=== PATIENT | female | born 1970 | race Caucasian/White ===

== ENCOUNTER 2019-06-25 08:05 | Day surgery (SDC) | payer MEDICARE ==
[~2019-06-25] VITALS: Ht 165.1 cm; Wt 122.5 kg
[2019-06-25] MEDS ORDERED: GABA-531 PO (08:07)
[2019-06-25] MEDS ORDERED: BUPR100T13 PO (08:07)
[2019-06-25] MEDS ORDERED: LISI40TA4 PO (08:07)
[2019-06-25] MEDS ORDERED: TRAZ-252 PO (08:07)
[2019-06-25] MEDS ORDERED: QUET400T PO (08:07)
[2019-06-25] MEDS ORDERED: LACTATED RINGERS 1,000 ML IV SCH (08:45)
[2019-06-25 09:38] LABS: CHLORIDE 109 mEq/L (98-107)
[2019-06-25 09:40] LABS: PARTIAL THROMBOPLASTIN TIME 26.2 sec (23.4-31.0); PROTHROMBIN TIME 9.9 sec (9.6-11.0)
[2019-06-25 09:46] LABS: HCG SCREEN NEGATIVE
[2019-06-25] MEDS ORDERED: FLOV44 IH (10:37)
[2019-06-25] MEDS ORDERED: MIDAZOLAM HCL 2 MG/2 ML VIAL ONE (10:47)
[2019-06-25] MEDS ORDERED: FENTANYL CITRATE/PF 50MCG/ML 2ML VIAL ONE (10:47)
[2019-06-25] MEDS ORDERED: ONDANSETRON HCL 4MG/2ML INJ ONE (10:48)
[2019-06-25] MEDS ORDERED: TERBUTALINE SULFATE 1MG/ML VIAL ONE (10:48)
[2019-06-25] MEDS ORDERED: METOCLOPRAMIDE HCL 10MG/2ML VIAL ONE (10:48)
[2019-06-25] MEDS ORDERED: PROPOFOL 200MG/20ML VIAL IV ONE (10:48)
[2019-06-25] MEDS ORDERED: LIDOCAINE HCL/PF 1% 10 MG/ML 5ML VIAL ONE (10:48)
[2019-06-25 11:06] LABS: BASOPHILS % 1.3 % (0.0-2.0); EOSINOPHILS % 4.9 % (0.0-5.0); HEMOGLOBIN. 11.4 g/dL (12.0-16.0); LYMPHOCYTES % 28.3 % (20.0-50.0); MEAN CORPUSCULAR HEMOGLOBIN 29.1 pg (28.0-32.0); MEAN CORPUSCULAR VOLUME 86.9 fL (81.0-99.0); MEAN PLATELET VOLUME 8.3 fl (7.4-10.4); MONOCYTES % 7.6 % (2.0-8.0); NEUTROPHILS % 57.9 % (40.0-76.0); PLATELET 312 x1000/uL (130-400); RED BLOOD CELL COUNT 3.91 mill/uL (4.2-5.4); RED CELL DISTRIBUTION WIDTH 14.3 % (11.6-14.6)
[2019-06-25] MEDS ORDERED: DEXAMETHASONE 4MG/ML 1ML VIAL ONE (11:07)
[2019-06-25] MEDS ORDERED: EPHEDRINE SULFATE 50MG/ML VIAL ONE (11:07)
[2019-06-25] MEDS ORDERED: SODIUM CHLORIDE 0.9% 10ML VIAL ONE ×3 (11:07→11:50)
[2019-06-25] MEDS ORDERED: CEFAZOLIN SODIUM 1000MG/VIAL ONE (11:27)
[2019-06-25] MEDS ORDERED: PHENYLEPHRINE HCL 10 MG/ML 1ML (IV VIAL) IV ONE (11:49)
[2019-06-25] MEDS ORDERED: HYDRALAZINE 20MG/ML VIAL ONE (12:17)
== END 2019-06-25 14:30 | disposition home or self-care (01) ==
LOC: OR 08:05
PROVIDERS: ATTEND Obstetrics & Gynecology
DX: D25.9 Leiomyoma of uterus, unspecified (principal); N92.4 Excessive bleeding in the premenopausal period; I10 Essential (primary) hypertension; J45.909 Unspecified asthma, uncomplicated; F41.9 Anxiety disorder, unspecified; F32.9 Major depressive disorder, single episode, unspecified; Z90.49 Acquired absence of other specified parts of digestive tract; Z98.890 Other specified postprocedural states; Z98.51 Tubal ligation status; Z79.899 Other long term (current) drug therapy
CPT/HCPCS: 36415; 58558; 80053; 84703; 85025; 85610; 85730; 86850; 86900; 86901; 88305; 93005; J0690; J1100; J2250; J2370; J2405; J2704; J2765; J3010; J3105; J3490; J0360

== ENCOUNTER → 2020-02-26 | Outpatient (CLI) | payer MEDICARE, MEDICAID ==
[~2020-02-26] MED LIST: AMLO10TA80 PO; BUPR100T13 PO; FERR324T4 PO; FLOV44 IH; GABA-531 PO; LISI40TA4 PO; QUET400T PO; TRAZ-252 PO
== END | disposition home or self-care (01) ==
LOC: LAB 09:30
PROVIDERS: ATTEND Obstetrics & Gynecology
DX: Z01.812 Encounter for preprocedural laboratory examination (principal); Z20.828 Contact with and (suspected) exposure to other viral communicable diseases
CPT/HCPCS: C9803; U0003

== ENCOUNTER 2020-02-29 09:27 | Inpatient (IN) | payer MEDICARE, MEDICAID ==
[~2020-02-29] VITALS: Ht 165.1 cm; Wt 119.3 kg
[2020-02-29] MEDS ORDERED: LACTATED RINGERS 1,000 ML IV SCH (10:30)
[2020-02-29 11:06] LABS: CHLORIDE 108 mEq/L (98-107)
[2020-02-29 11:08] LABS: PARTIAL THROMBOPLASTIN TIME 27.4 sec (23.4-31.0); PROTHROMBIN TIME 10.5 sec (9.6-11.0)
[2020-02-29 11:17] LABS: BASOPHILS % 0.8 % (0.0-2.0); HEMATOCRIT. 37.7 % (36.0-48.0); HEMOGLOBIN. 12.6 g/dL (12.0-16.0); LYMPHOCYTES % 18.5 % (20.0-50.0); MEAN CORPUSCULAR HEMOGLOBIN 30.8 pg (28.0-32.0); MEAN PLATELET VOLUME 8.3 fl (7.4-10.4); NEUTROPHILS % 72.7 % (40.0-76.0); PLATELET 330 x1000/uL (130-400); RED BLOOD CELL COUNT 4.09 mill/uL (4.2-5.4); RED CELL DISTRIBUTION WIDTH 13.7 % (11.6-14.6)
[2020-02-29 11:26] LABS: HCG SCREEN NEGATIVE
[2020-02-29 11:26] LABS: CLARITY URINE TURBID (CLEAR); COLOR URINE DARK YELLOW (YELLOW); KETONES URINE TRACE (NEGATIVE); LEUKOCYTE ESTERASE URINE 2+ (NEGATIVE); NITRITE URINE NEGATIVE (NEGATIVE); OCCULT BLOOD URINE NEGATIVE (NEGATIVE); PH URINE 5.5 (4.5-8.0); PROTEIN URINE 1+ (NEGATIVE); SPECIFIC GRAVITY URINE 1.025 (1.005-1.030)
[2020-02-29] MEDS ORDERED: SKIN ADHESIVE 0.7 GM EA TOP ONE (12:36)
[2020-02-29] MEDS ORDERED: BUPIVACAINE HCL/PF 0.5% (5MG/ML) 10ML ONE (12:36)
[2020-02-29] MEDS ORDERED: ROCURONIUM BROMIDE 10MG/ML VIAL 5ML IV ONE (13:46)
[2020-02-29] MEDS ORDERED: PROPOFOL 200MG/20ML VIAL IV ONE (13:46)
[2020-02-29] MEDS ORDERED: CEFAZOLIN SODIUM 1000MG/VIAL ONE (13:47)
[2020-02-29] MEDS ORDERED: DEXAMETHASONE 4MG/ML 1ML VIAL ONE ×2 (13:47→13:48)
[2020-02-29] MEDS ORDERED: HYDROMORPHONE HCL/PF 2MG/ML (OR) ONE (13:57)
[2020-02-29] MEDS ORDERED: GLYCOPYRROLATE 0.2 MG/ML 2ML VIAL ONE (14:33)
[2020-02-29] MEDS ORDERED: METRONIDAZOLE 500 MG PREMIX 100 ML IV ONE (17:05)
[2020-02-29] MEDS ORDERED: ONDANSETRON HCL 4MG/2ML INJ IV PRN ×3 (17:30→22:45)
[2020-02-29] MEDS ORDERED: MEPERIDINE HCL/PF 25MG/ML CPJ IV PRN (17:30)
[2020-02-29] MEDS ORDERED: HYDROMORPHONE HCL/PF 2MG/ML CPJ IV PRN (17:30)
[2020-02-29] MEDS ORDERED: LABETALOL 5MG/ML SYR 20 MG/4 ML SYRINGE IV PRN (17:30)
[2020-02-29 21:00] VITALS: BP 130/78
[2020-03-01] VITALS: BP 112/69
[2020-03-01] MEDS: IBUPROFEN 800MG TABLET PO PRN ×2 (00:28→11:25)
[2020-03-01] MEDS: HYDROCODONE/ACETAMINOPHEN 5/325MG TABLET PO PRN ×2 (01:39→08:58)
[2020-03-01 04:00] VITALS: BP 115/75
[2020-03-01 08:00] VITALS: BP 114/74
[2020-03-01 09:50] LABS: HEMATOCRIT. 33.9 % (36.0-48.0); HEMOGLOBIN. 11.2 g/dL (12.0-16.0); MEAN CORPUSCULAR HEMOGLOBIN 30.4 pg (28.0-32.0); MEAN CORPUSCULAR VOLUME 91.7 fL (81.0-99.0); MEAN PLATELET VOLUME 8.3 fl (7.4-10.4); PLATELET 344 x1000/uL (130-400); RED CELL DISTRIBUTION WIDTH 13.5 % (11.6-14.6)
[2020-03-01] MEDS ORDERED: FLUTICASONE PROPIONATE IH PRN (10:00)
[2020-03-01] MEDS ORDERED: AMLODIPINE 10MG TABLET PO SCH (11:00)
[2020-03-01] MEDS ORDERED: BUPROPION HCL 150MG TABLET XL 24HR PO SCH (11:00)
[2020-03-01] MEDS ORDERED: BUDESONIDE 0.5MG/2ML NEB HHN SCH (11:00)
[2020-03-01] MEDS ORDERED: GABAPENTIN 300MG CAPSULE PO SCH (11:00)
[2020-03-01] MEDS ORDERED: LISINOPRIL 40MG TABLET PO SCH (11:00)
[2020-03-01] MEDS ORDERED: QUETIAPINE FUMARATE 50MG TABLET PO SCH (11:00)
[2020-03-01 12:00] VITALS: BP 116/82
[2020-03-01 12:15] VITALS: BP 114/74
[2020-03-01] MEDS ORDERED: FERROUS SULFATE 325MG TABLET PO SCH (12:50)
[2020-03-01 14:58] LABS: PLATELET ESTIMATE NORMAL
[2020-03-01] MEDS ORDERED: TRAZODONE HCL 50MG TABLET PO SCH (21:00)
== END 2020-03-01 12:44 | disposition home or self-care (01) | DRG 742 ==
LOC: OR 09:27 → 6EST 20:48
PROVIDERS: ADMIT Obstetrics & Gynecology; ATTEND Obstetrics & Gynecology
PROC: 0UT9FZZ Resection of Uterus, Via Natural or Artificial Opening With Percutaneous Endoscopic Assistance (ICD-10-PCS; principal; 2020-02-29)
PROC: 8E0W4CZ Robotic Assisted Procedure of Trunk Region, Percutaneous Endoscopic Approach (ICD-10-PCS; 2020-02-29)
DX: D25.9 Leiomyoma of uterus, unspecified (principal); D62 Acute posthemorrhagic anemia; R58 Hemorrhage, not elsewhere classified; D72.829 Elevated white blood cell count, unspecified; N93.9 Abnormal uterine and vaginal bleeding, unspecified
CPT/HCPCS: 36415; 71045; 80053; 81003; 84703; 85025; 86850; 86900; 88305; 93005; J0690; J1100; J1170; J2704; J3490